=== PATIENT | female | born 1965 | race Caucasian/White ===

== ENCOUNTER 2017-09-22 18:47 | Emergency (ER) | payer SELFPAY ==
[~2017-09-22] VITALS: Ht 171.4 cm; Wt 59.1 kg
[2017-09-22 18:48] VITALS: BP 150/82; PULSE 109; RESP 14; TEMP 99.1; O2SAT 95
[2017-09-22] MEDS ORDERED: BACT800T5 PO (19:44)
--- NOTE | 2017-09-22 19:46 | PD ---
HPI Chief Complaint: Skin Problem Time Seen by Provider: 19:34 Travel History International Travel<30 days: No Contact w/Intl Traveler<30days: No Traveled to known affect area: No History of Present Illness HPI 52-year-old female here with a painful lesion to her right lower extremity. She believes it was a spider bite. Lesion present for the last 7 days. She denies fever or chills. Symptoms severity is moderate. No aggravating or alleviating factors. PFSH Past Medical History Medical History: Denies Significant Hx Immunizations Current: Yes Tetanus Vaccination: < 5 Years Influenza Vaccination: No ?: Unknown Social History Alcohol Use: No Tobacco Use: Yes Substance Use: No Allergies-Medications (Allergen,Severity, Reaction): Coded Allergies: penicillin V (Verified Allergy, Severe, Anaphylaxis, 09/22/17) Review of Systems Except as stated in HPI: all other systems reviewed are Neg General / Constitutional: No: Fever Physical Exam Narrative GENERAL: Alert female in no distress. SKIN: Warm and dry. 1 cm area open lesion surrounded by 2 cm area of erythema. No induration or fluctuance. No drainage. HEAD: Normocephalic. EYES: No scleral icterus. No injection or drainage. NECK: Supple, trachea midline. MUSCULOSKELETAL: No cyanosis, or edema. Right lower extremity:1 cm area open lesion surrounded by 2 cm area of erythema to the distal anterior aspect of the martinez. No induration or fluctuance. No drainage. 2+ distal pulses. Data Data Last Documented VS Vital Signs Date Time Temp Pulse Resp B/P (MAP) Pulse Ox O2 Delivery O2 Flow Rate FiO2 09/22/17 18:48 99.1 109 14 150/82 (104) 95 MDM Medical Decision Making Medical Screen Exam Complete: Yes Emergency Medical Condition: Yes Differential Diagnosis Insect bite, abscess, cellulitis Narrative Course 52-year-old female here with what appears to be an open and draining abscess to her right anterior martinez. She is afebrile. She is nontoxic appearing. The area is not indurated or fluctuant. She was going to be prescribed clindamycin but she does not have health insurance and is [place] [facility]. She'll be prescribed Bactrim Diagnosis Primary Impression: Abscess Referrals: Primary Care Physician Additional Instructions: Apply warm compresses to the area daily. Cleansed the area with soap and water daily. Scripts Sulfamethoxazole-Trimethoprim (Bactrim DS) 800-160 Mg Tab 1 TAB PO BID for Infection, #20 TAB 0 Refills Prov: Lolita Jaimes 09/22/17 Disposition: 01 DISCHARGE HOME Condition: Stable Lolita Jaimes Sep 22, 2017 19:46
[2017-09-22] MEDS ORDERED: SULFAMETHOXAZOLE-TRIMETHOPRIM DS 800-160 MG TAB PO ONE (20:00)
== END 2017-09-22 20:06 | disposition home or self-care (01) ==
LOC: NEPK 18:47
DX: L02.415 Cutaneous abscess of right lower limb (principal)
CPT/HCPCS: 99283